=== PATIENT | female | born 2000 | race Caucasian/White ===

== ENCOUNTER 2019-02-18 08:50 | Outpatient (CLI) | payer MEDICAID ==
[~2019-02-18] VITALS: Ht 149.9 cm; Wt 77.8 kg
[~2019-02-18 08:50] MED LIST: PREN-99 PO
[2019-02-18 09:04] VITALS: Ht 149.9 cm; Wt 77.8 kg
[2019-02-18 09:05] VITALS: BP 108/62
[2019-02-18] MEDS ORDERED: LACTATED RINGER'S 1,000 ML IV ONE (09:30)
[2019-02-18] MEDS ORDERED: SOD CHLORIDE 0.9% 1,000 ML IV SCH (12:30)
[2019-02-18] MEDS ORDERED: CEFTRIAXONE 1 GM/50 ML (PMX) 50 ML IVPB ONE (13:30)
--- NOTE | 2019-02-18 14:48 | TRIAGE ---
OB Triage Datetime Report Generated by CPN: 02/18/2019 14:48 Datetime: 02/18/2019 13:55 Stage of : OB Triage Labor Evaluation Frequency: 0 Monitor Mode: External Pattern: Normal: <= 5 Contractions in 10 Minutes Resting Tone [place]: Relaxed Heart Rate FHR Baseline Rate: 135 Monitor Mode: External US Variability: Moderate 6-25 bpm Accelerations: 15X15 Decelerations: None Category: Category I Datetime: 02/18/2019 12:50 Stage of : OB Triage Labor Evaluation Frequency: 0 Monitor Mode: External Pattern: Normal: <= 5 Contractions in 10 Minutes Resting Tone [place]: Relaxed Heart Rate FHR Baseline Rate: 135 Monitor Mode: External US Accelerations: 15X15 Decelerations: None Category: Category I Pain Assessment Pain Scale: 5 Pain Presence: Intermittent Pain Type: Ache Pain Location: Back Pain Goal: 0 Pain Relief Measures: Comfort Measures Datetime: 02/18/2019 11:34 Stage of : OB Triage Datetime: 02/18/2019 10:47 Stage of : OB Triage Labor Evaluation Frequency: 0 Monitor Mode: External Pattern: Normal: <= 5 Contractions in 10 Minutes Resting Tone [place]: Relaxed Heart Rate FHR Baseline Rate: 135 Monitor Mode: External US Variability: Moderate 6-25 bpm Accelerations: 15X15 Decelerations: None Category: Category I Pain Assessment Pain Scale: 7 Pain Presence: Intermittent Pain Type: Ache Pain Location: Back Pain Goal: 0 Pain Relief Measures: Comfort Measures Datetime: 02/18/2019 09:45 Comments: us at bedside Datetime: 02/18/2019 09:20 Labor Evaluation Frequency: 0 Monitor Mode: External Pattern: Normal: <= 5 Contractions in 10 Minutes Resting Tone [place]: Relaxed Heart Rate FHR Baseline Rate: 145 Monitor Mode: External US Variability: Moderate 6-25 bpm Accelerations: 15X15 Decelerations: None Category: Category I Datetime: 02/18/2019 09:01 Time of Arrival: 02/18/2019 08:43 EGA: 27.1 Arrived By: Ambulatory Arrived From: Home Chief Complaint: UC'S Movement: Present Contractions: Irregular Rupture of Membranes: Denies Vaginal Bleeding: None Vaginal Discharge: Denies Recent Sexual Intercouse: Denies Abdominal Trauma: Not Applicable Patient Complaints: Contractions Additional Patient Complaints: PATIENT STATES UC'S PAST THREE DAYS Time Provider Notified: 02/18/2019 09:20 Provider Notified: dr. roy Initial Plan: [id number], CALL MD Datetime: 02/18/2019 08:52 Stage of : OB Triage Assessment Type: Triage Maternal Assessment Level of Consciousness: Fully Conscious DTR's/Clonus: DTRs 2+; No Clonus Headache: Denies Blurred Vision: No Respiratory Effort: Unlabored; Regular Rhythm; Equal Expansion Breath Sounds, Left: Clear and Equal Breath Sounds, Right: Clear and Equal Nausea/Vomiting: Denies RUQ Epigastric Pain: Denies Lower Extremities Edema: None Degree: None Upper Extremities Edema: None Degree: None Facial Edema: None Temperature Route: Oral Fall Risk Assessment History of Falling: (0) No Secondary Diagnosis: (0) No Ambulatory Aid: (0) Bedrest/Nurse Assist IV Therapy: (0) No Gait: (0) Normal/Bedrest/Immobile Mental Status: (0) Oriented to Own Ability Fall Score: 0 Fall Risk Score Definition: No Risk: No action required Monitor Mode: External (Annotations: INITIAL PLACEMENT ) Monitor Mode: External US (Annotations: INIITIAL PLACEMENT ) Pain Assessment Pain Scale: 0 Pain Presence: None/Denies Pain Type: N/A Datetime: 12/29/2018 23:24 Stage of : OB Triage Datetime: 12/29/2018 23:00 Labor Evaluation Frequency: X2 Monitor Mode: External Duration (sec)2399: 40-50 Quality: Mild Pattern: Normal: <= 5 Contractions in 10 Minutes Resting Tone [place]: Relaxed Datetime: 12/29/2018 22:00 Labor Evaluation Frequency: X1 Monitor Mode: External Duration (sec)2399: 40 Quality: Mild Pattern: Normal: <= 5 Contractions in 10 Minutes Resting Tone [place]: Relaxed Datetime: 12/29/2018 21:00 Labor Evaluation Frequency: X1 Monitor Mode: External Duration (sec)2399: 40 Quality: Mild Pattern: Normal: <= 5 Contractions in 10 Minutes Resting Tone [place]: Relaxed Datetime: 12/29/2018 20:53 EGA: 19.6 Datetime: 12/29/2018 20:30 Labor Evaluation Frequency: IRREGULAR Monitor Mode: External Duration (sec)2399: 40-70 Quality: Mild Pattern: Normal: <= 5 Contractions in 10 Minutes Resting Tone [place]: Relaxed Datetime: 12/29/2018 19:56 Stage of : OB Triage Assessment Type: Triage Maternal Assessment Level of Consciousness: Fully Conscious DTR's/Clonus: DTRs 2+; No Clonus Headache: Denies Blurred Vision: No Respiratory Effort: Unlabored; Regular Rhythm; Equal Expansion Breath Sounds, Left: Clear and Equal Breath Sounds, Right: Clear and Equal Nausea/Vomiting: Denies RUQ Epigastric Pain: Denies Facial Edema: None Temperature Route: Oral Fall Risk Assessment History of Falling: (0) No Secondary Diagnosis: (0) No Ambulatory Aid: (0) Bedrest/Nurse Assist IV Therapy: (0) No Gait: (0) Normal/Bedrest/Immobile Mental Status: (0) Oriented to Own Ability Fall Score: 0 Fall Risk Score Definition: No Risk: No action required Pain Assessment Pain Scale: 7 Pain Presence: Constant Pain Type: Ache Pain Location: LEFT SIDE Pain Goal: 2 Pain Relief Measures: Comfort Measures Datetime: 12/29/2018 19:40 Stage of : OB Triage
--- NOTE | 2019-02-18 18:16 | PN ---
Triage Information Date/Time 02/18/19 Reason for visit: Uterine contractions Weeks of Gestation 27w1d /Para Diabetes: none Hypertention: none Objective Vital Signs Date Temp Pulse Resp B/P (MAP) Pulse Ox O2 O2 Flow FiO2 Time Delivery Rate 02/18/19 98.2 108/62 09:05 (77) Heart Rate: 140's Contractions: None Exam CVA sharonda tenderness ? urine ++ leukocytes but WBC or RBC not significant Results/Medications Results 24 hrs Laboratory Tests Test 02/18/19 09:30 Urine Color YELLOW Urine Clarity SLIGHTLY CLOUDY A Urine pH 7.0 Urine Specific [place] 1.010 Urine Ketones NEGATIVE Urine Nitrite NEGATIVE Urine Bilirubin NEGATIVE Urine Urobilinogen NEGATIVE Urine Leukocyte Esterase 2+ H Urine Microscopic RBC 2 Urine Microscopic WBC 4 Urine Squamous Epithelial Cells MODERATE Urine Bacteria FEW A Urine Hemoglobin NEGATIVE Urine Glucose NEGATIVE Urine Total Protein NEGATIVE Medications rocephin 1gm IV given IV hydration Imaging Results CVL 4.7cm Disposition: Discharge Assessment/Plan IUP 27w1d R/O PTL pain resolved R/O UTI Plan discharge home with insrtuction to drink more water Rx cephalexin 500mg q6hr #28 DEVEN ALLEN MD Feb 18, 2019 18:16
== END 2019-02-18 14:47 | disposition home or self-care (01) ==
LOC: OBT 08:50 → L-D 08:50 → OBT 14:47
PROVIDERS: ATTEND Obstetrics & Gynecology
DX: O62.9 Abnormality of forces of labor, unspecified (principal); Z3A.27 27 weeks gestation of pregnancy
CPT/HCPCS: 76817; 81001; 87086; J0696; J7030; J7120; 96360; 96361; G0463

== ENCOUNTER 2019-05-05 17:00 | Outpatient (CLI) | payer MEDICAID ==
[~2019-05-05] VITALS: Ht 149.9 cm; Wt 81.9 kg
[2019-05-05 17:38] VITALS: BP 109/63; PULSE 75; RESP 19; Ht 149.9 cm; Wt 81.9 kg
--- NOTE | 2019-05-05 18:49 | PREOPHP ---
DATE OF ADMISSION: 05/05/2019 HISTORY OF PRESENT ILLNESS: Ms. Dejah Thompson is a 19-year-old 1 para 0, EDC 05/18/2019 , intrauterine at 38 weeks gestational age who presented to triage complaining of lower rema k pain with dysuria. She denies any headache, nausea, vomiting, shortness of breath or visual change s. Her care took place at [facility]. PAST MEDICAL HISTORY: Anemia. MEDICATIONS: 1. vitamins. 2. Iron. PAST SURGICAL HISTORY: None. OBSTETRIC HISTORY: Primigravida. GYNECOLOGIC HISTORY: 11, regular 3 to 4 days. Denies any sexually transmitted infections. Sexually active with one partner. SOCIAL HISTORY: Denies any smoking, drugs or alcohol. FAMILY HISTORY: None. REVIEW OF SYSTEMS: All within normal except history of present illness. PHYSICAL EXAMINATION: HEENT: Within normal. LUNGS: CTA bilateral. CARDIOVASCULAR: S1, S2, regular rhythm. ABDOMEN: Gravid, nontender. Negative CVA bilateral. EXTREMITIES: Negative calf tenderness. VAGINAL EXAM: 150 -3 posterior. H and H is 9.5/29.9, white blood cell 7. Urinalysis negative. Fet al heart tracing category 1. TOCO: Occasional contractions. ASSESSMENT: Intrauterine at 38 weeks gestational age with symptomatic urinary tract infect ion. PLAN: Discharged to home with Keflex 500 mg p.o. t.i.d. #21. Followup biophysical profile before di marcela. Dictated By: KARMA JAIMES/MAYO Conf#: [id number] DID#: [id number]
--- NOTE | 2019-05-05 18:56 | TRIAGE ---
OB Triage Datetime Report Generated by CPN: 05/05/2019 18:56 Datetime: 05/05/2019 17:43 Assessment Type: Triage Maternal Assessment Level of Consciousness: Keenly Alert, Responsive DTR's/Clonus: DTRs 2+; No Clonus Headache: Denies Blurred Vision: No Respiratory Effort: Unlabored; Regular Rhythm; Equal Expansion Breath Sounds, Left: Clear and Equal Breath Sounds, Right: Clear and Equal Nausea/Vomiting: Denies RUQ Epigastric Pain: Denies Lower Extremities Edema: None Degree: None Upper Extremities Edema: None Degree: None Facial Edema: None Fall Risk Assessment History of Falling: (0) No Secondary Diagnosis: (0) No Ambulatory Aid: (0) Bedrest/Nurse Assist IV Therapy: (0) No Gait: (0) Normal/Bedrest/Immobile Mental Status: (0) Oriented to Own Ability Fall Score: 0 Fall Risk Score Definition: No Risk: No action required Labor Evaluation Frequency: OCCAS Monitor Mode: External Duration (sec)2399: 50-70 Quality: Mild Pattern: Normal: <= 5 Contractions in 10 Minutes Resting Tone [place]: Relaxed Heart Rate FHR Baseline Rate: 125 Monitor Mode: External US Variability: Moderate 6-25 bpm Accelerations: 15X15 Decelerations: None Category: Category I Datetime: 05/05/2019 17:42 Time of Arrival: 05/05/2019 16:50 EGA: 38.0 Arrived By: Ambulatory Arrived From: Home Chief Complaint: BACK PAIN AND BURNING WHILE URINATING Movement: Present Contractions: Denies/Absent Rupture of Membranes: Denies Vaginal Bleeding: None Vaginal Discharge: Denies Recent Sexual Intercouse: Denies Abdominal Trauma: Not Applicable Patient Complaints: Other Time Provider Notified: 05/05/2019 17:45 Provider Notified: DR HOLLAND Initial Plan: NST UA BPP Datetime: 02/18/2019 09:01 EGA: 27.1 Datetime: 02/18/2019 08:52 Fall Score: 0 Fall Risk Score Definition: No Risk: No action required Datetime: 12/29/2018 20:53 EGA: 19.6 Datetime: 12/29/2018 19:56 Fall Score: 0 Fall Risk Score Definition: No Risk: No action required
== END 2019-05-05 18:58 | disposition home or self-care (01) ==
LOC: L-D 17:00 → OBT 17:00
PROVIDERS: ATTEND Obstetrics & Gynecology
DX: O23.43 Unspecified infection of urinary tract in pregnancy, third trimester (principal); Z3A.38 38 weeks gestation of pregnancy
CPT/HCPCS: 76818; 81001; 85025; Z7500; G0463

== ENCOUNTER 2019-05-06 18:16 | Outpatient (CLI) | payer MEDICAID ==
[~2019-05-06] VITALS: Ht 149.9 cm; Wt 82.1 kg
[2019-05-06 18:49] VITALS: BP 106/61; PULSE 86; RESP 18; Ht 149.9 cm; Wt 82.1 kg
--- NOTE | 2019-05-06 21:50 | PN ---
Triage Information Date/Time Reason for visit: Abd/pelvic pain Weeks of Gestation Patient is a 19-year-old 1 para 0 at 38 weeks and 2 days of gestation with estimated date of delivery May 18, 2019 She presents with chief complaint of abdominal pain and pressure Patient denies vaginal bleeding or leaking fluid, she reports positive movement /Para 1 para 0 Diabetes: none Hypertention: none Objective Vital Signs Date Temp Pulse Resp B/P (MAP) Pulse Ox O2 O2 Flow FiO2 Time Delivery Rate 05/06/19 98.8 86 18 106/61 18:49 (76) Heart Rate: 140's Heart Rate Comments tracing category 1 Contractions: None Exam Cervix closed per nurse Results/Medications Results 24 hrs Laboratory Tests Test 05/06/19 18:45 Urine Color YELLOW Urine Clarity CLEAR Urine pH 7.0 Urine Specific [place] 1.008 Urine Ketones TRACE A Urine Nitrite NEGATIVE Urine Bilirubin NEGATIVE Urine Urobilinogen NEGATIVE Urine Leukocyte Esterase NEGATIVE Urine Hemoglobin NEGATIVE Urine Glucose NEGATIVE Urine Total Protein NEGATIVE Imaging Results PROCEDURE: US OB. CLINICAL INDICATION: Decreased movement TECHNIQUE: Multiple sonographic images of the pelvis were obtained. The images were reviewed on a PACS workstation. COMPARISON: No prior studies are available for comparison. FINDINGS: There is a single live intrauterine . cardiac activity is identified at a rate of 146 beats per minute. presentation is cephalic. Placenta is left lateral grade 2. Biophysical profile score is as follows: Breathing 2 Movements 2 Tone 2 Fluid volume 2 Amniotic fluid index = 9.7 cm Total biophysical profile score = 8/8 IMPRESSION: Biophysical profile score = 8/8 RPTAT: HH .Ameya Horne MD, Date Time Electronically viewed and signed by .Ameya Horne MD, on 05/05/2019 18:17 .W/ CC: KARMA HOLLAND MD [phone] PROCEDURE: US Obstetrical, limited CLINICAL INDICATION: Uterine contractions, cervical length TECHNIQUE: Multiple real-time images were acquired of the patient's maternal abdomen utilizing a curved array transducer. COMPARISON: 12/29/2018 FINDINGS: There is a single live intrauterine fetus positioned cephalic. The placenta is implanted posteriorly and is grade 1. There is no placenta previa or abruptio evident. The cervix is closed and measures 4.7 cm in length. The heart rate is 146 beats per minute. IMPRESSION: 1. Single live intrauterine fetus, now cephalic in presentation. The heart rate is 146 bpm. 2. The cervix is closed and a trace of the cervix measures 4.7 cm in length. 3. Posterior placenta, grade 1. No previa or abruptio is evident. Physician Shanon Date Time Electronically viewed and signed by Physician Shanon on 02/18/2019 09:59 RH/ CC: DEVEN ALLEN MD [phone] Disposition: Discharge Assessment/Plan Labor precautions were given kick count instructions were given Patient instructed to follow-up with [facility] in 1 to 2 days DAYA DONNELLY MD May 06, 2019 21:49
--- NOTE | 2019-05-07 05:17 | TRIAGE ---
OB Triage Datetime Report Generated by CPN: 05/07/2019 05:17 Datetime: 05/06/2019 21:08 Stage of : OB Triage Labor Evaluation Frequency: Irregular Monitor Mode: External Duration (sec)2399: 40-80 Quality: Mild Pattern: Normal: <= 5 Contractions in 10 Minutes Resting Tone [place]: Relaxed Heart Rate FHR Baseline Rate: 125 Monitor Mode: External US FHR Baseline Changes: No Baseline Change Variability: Moderate 6-25 bpm Accelerations: 15X15 Decelerations: None Datetime: 05/06/2019 21:00 Stage of : OB Triage Datetime: 05/06/2019 20:06 Stage of : OB Triage Vaginal Exam Dilatation (cms): 0.0 Effacement (%): 50 Station: -3 Exam By: SYL Alex Membrane Status: Intact Vaginal Bleeding: None Cervix, Consistency: Soft Cervix, Position: Posterior Datetime: 05/06/2019 20:00 Stage of : OB Triage Assessment Type: Triage Maternal Assessment Level of Consciousness: Keenly Alert, Responsive DTR's/Clonus: DTRs 2+; No Clonus Headache: Denies Blurred Vision: No Respiratory Effort: Unlabored; Regular Rhythm; Equal Expansion Breath Sounds, Left: Clear and Equal Breath Sounds, Right: Clear and Equal Nausea/Vomiting: Denies RUQ Epigastric Pain: Denies Lower Extremities Edema: None Degree: None Upper Extremities Edema: None Degree: None Facial Edema: None Temperature Route: Oral Fall Risk Assessment History of Falling: (0) No Secondary Diagnosis: (0) No Ambulatory Aid: (0) Bedrest/Nurse Assist IV Therapy: (0) No Gait: (0) Normal/Bedrest/Immobile Mental Status: (0) Oriented to Own Ability Fall Score: 0 Fall Risk Score Definition: No Risk: No action required Labor Evaluation Frequency: Irregular Monitor Mode: External Duration (sec)2399: 40-80 Quality: Mild Pattern: Normal: <= 5 Contractions in 10 Minutes Resting Tone [place]: Relaxed Heart Rate FHR Baseline Rate: 125 Monitor Mode: External US Variability: Moderate 6-25 bpm Accelerations: 15X15 Decelerations: None Datetime: 05/06/2019 19:28 Stage of : OB Triage Datetime: 05/06/2019 18:39 Stage of : OB Triage Assessment Type: Triage Maternal Assessment Level of Consciousness: Keenly Alert, Responsive DTR's/Clonus: DTRs 2+; No Clonus Headache: Denies Blurred Vision: No Respiratory Effort: Unlabored; Regular Rhythm; Equal Expansion Breath Sounds, Left: Clear and Equal Breath Sounds, Right: Clear and Equal Nausea/Vomiting: Denies RUQ Epigastric Pain: Denies Facial Edema: None Temperature Route: Axillary Fall Risk Assessment History of Falling: (0) No Secondary Diagnosis: (0) No Ambulatory Aid: (0) Bedrest/Nurse Assist IV Therapy: (0) No Gait: (0) Normal/Bedrest/Immobile Mental Status: (0) Oriented to Own Ability Fall Score: 0 Fall Risk Score Definition: No Risk: No action required Labor Evaluation Frequency: X1 Monitor Mode: External Duration (sec)2399: 50 Quality: Mild Pattern: Normal: <= 5 Contractions in 10 Minutes Resting Tone [place]: Relaxed Heart Rate FHR Baseline Rate: APPLIED Monitor Mode: External US Pain Assessment Pain Scale: 7 Pain Presence: Intermittent (Annotations: UPON URINATION) Pain Type: Burning Pain Location: Perineum Pain Goal: 3 Pain Relief Measures: Comfort Measures Datetime: 05/06/2019 18:38 Time of Arrival: 05/06/2019 18:09 EGA: 38.2 Arrived By: Ambulatory Arrived From: Home Chief Complaint: C/O MUCUS DISCHARGE AND PAIN UPON URINATION, DENIES LEAKING, SCANT BLEEDING Movement: Present Contractions: Denies/Absent Rupture of Membranes: Denies Vaginal Bleeding: Scant Vaginal Discharge: Present Recent Sexual Intercouse: Denies Abdominal Trauma: Not Applicable Patient Complaints: None Time Provider Notified: 05/06/2019 19:28 Provider Notified: Initial Plan: MONITOR, UA, VE, BPP Datetime: 05/05/2019 17:43 Fall Score: 0 Fall Risk Score Definition: No Risk: No action required Datetime: 05/05/2019 17:42 EGA: 38.1 Datetime: 02/18/2019 09:01 EGA: 27.2 Datetime: 02/18/2019 08:52 Fall Score: 0 Fall Risk Score Definition: No Risk: No action required Datetime: 12/29/2018 20:53 EGA: 20.0 Datetime: 12/29/2018 19:56 Fall Score: 0 Fall Risk Score Definition: No Risk: No action required
== END 2019-05-06 21:15 | disposition home or self-care (01) ==
LOC: OBT 18:16 → L-D 18:16 → OBT 21:15
PROVIDERS: ATTEND Obstetrics & Gynecology
DX: O26.893 Other specified pregnancy related conditions, third trimester (principal); R10.2 Pelvic and perineal pain; Z3A.38 38 weeks gestation of pregnancy
CPT/HCPCS: 76818; 81003; 87086; Z7500; G0463

== ENCOUNTER 2019-05-12 | Inpatient (IN) | payer MEDICAID ==
[~2019-05-12] VITALS: Ht 149.9 cm; Wt 82.5 kg
[2019-05-12 01:27] VITALS: BP 116/71; PULSE 71; RESP 18; Ht 149.9 cm; Wt 82.5 kg
[2019-05-12] MEDS ORDERED: ACETAMINOPHEN 500 MG TAB PO ONE (01:34)
[2019-05-12] MEDS ORDERED: LACTATED RINGER'S 1,000 ML IV PRN (04:16)
[2019-05-12] MEDS ORDERED: MISOPROSTOL 200 MCG TAB PR PRN (04:30)
[2019-05-12] MEDS ORDERED: OXYTOCIN 30 UNITS/LR 500 ML IV PRN (04:30)
[2019-05-12] MEDS ORDERED: LIDOCAINE 1% (MPF) 30 ML INJ INJ PRN (04:30)
[2019-05-12] MEDS ORDERED: BUTORPHANOL 2 MG INJ IV PRN (04:30)
[2019-05-12] MEDS ORDERED: IBUPROFEN 600 MG TAB PO PRN (04:30)
[2019-05-12] MEDS ORDERED: OXYTOCIN 30 UNITS/LR 500 ML IV SCH ×2 (04:30)
[2019-05-12] MEDS ORDERED: CARBOPROST 250 MCG INJ IM PRN (04:30)
[2019-05-12] MEDS ORDERED: METHYLERGONOVINE 0.2 MG INJ IM PRN (04:30)
--- NOTE | 2019-05-12 05:17 | HP ---
Date/Time of Note Date/Time of Note DATE: 05/12/19 TIME: 05:14 OB - History Hx of Present Free Text/Dictation May 12, 2019 : 1 Para: 0 Other Concerns: 19-year-old G1, P0 with IUP at 39 weeks and 1 day presented after she fell today on her tailbone for evaluation. She denies any leaking of fluid, vaginal bleeding decreased movement or contractions. Patient denies any direct trauma to her abdomen. Denies any complication during course. Past Family/Social History * Past Medical, Surgical, Family and Obstetric Histories reviewed from chart. OB Admission Exam Vital Signs Vital Signs Vital Signs Date Temp Pulse Resp B/P (MAP) Pulse Ox O2 O2 Flow FiO2 Time Delivery Rate 05/12/19 98.3 71 18 116/71 Room Air 01:27 (86) Physical Exam HEENT: WNL Lungs: Clear Abdomen: WNL Extremities: Normal Reflexes: Normal Cervical Dilatation: 2cm Effacement: 75% Station: -1 Membranes: Intact Heart Rate: 120's Accelerations: Accelerations Present Varibility: Moderate Contractions on Admission: < 5 Minutes Apart Intensity: Moderate OB Assessment/Plan Other Assessment: IUP at 39 weeks and 1 day Status post fall Contractions, early labor Patient will be admitted for labor management possible augmentation Obtain records Anticipate VY DRISCOLL MD May 12, 2019 05:17
[2019-05-12] MEDS: LACTATED RINGER'S 1,000 ML IV SCH ×4 (05:23→23:49)
[2019-05-12] MEDS ORDERED: MINERAL OIL LIGHT 10 ML VIAL TOP ONE (08:00)
[2019-05-12] MEDS: AMPICILLIN 2 GM/NS (PMX) 100 ML IV PRN ×2 (12:23→13:40)
--- NOTE | 2019-05-12 18:32 | QN ---
Documentation Comment progress note patient seen and evaluated no complaints vs stable afebrile ab gravid nt extremity no edema no calf tenderness ve 4/90/-2 intact fhr cat 1 toco regular a/ iup at term in labor admitted for labor augmentation p/ anticipate vaginal delivery KARMA HOLLAND MD May 12, 2019 18:32
--- NOTE | 2019-05-12 19:44 | PREAC ---
Date/Time of Note Date/Time of Note DATE: 05/12/19 TIME: 19:43 Anesthesia Eval and Record Evaluation Time Pre-Procedure Interview DATE: 05/12/19 TIME: 19:43 Age 19 Sex female NPO: 8 hrs Preoperative diagnosis Planned procedure labor epidural Past Medical History Past Medical History: Includes GI: Obesity Surgery & Anesthesia Issues No known issue Meds Anticoagulation: No Beta Erum within 24 hr: No Reason Beta Erum not given: Pt. not on B-Erum Reported Medications Vit #76/Iron,Carb/FA (Pnv 29-1 Tablet) 1 Each Tablet, 1 EACH PO, TAB 12/29/18 Current Medications Lactated Ringer's 1,000 ml @ 125 mls/hr Q8H IV Last administered on 05/12/19at 17:28; Admin Dose 125 MLS/HR; Start 05/12/19 at 04:16 Butorphanol Tartrate (Stadol) 2 mg Q2H PRN IV .PAIN SCALE 6-10 Last administered on 05/12/19at 17:53; Admin Dose 2 MG; Start 05/12/19 at 04:30 Lidocaine (Xylocaine 1% (Mpf)) 30 ml ONCE PRN INJ .EPISIOTOMY; Start 05/12/19 at 04:30 Oxytocin/Lactated Ringer's 500 ml @ 500 mls/hr ONCE POST IV ; Start 05/12/19 at 04:30 Oxytocin/Lactated Ringer's 500 ml @ 125 mls/hr POST IV ; Start 05/12/19 at 04:30 Ibuprofen (Motrin) 600 mg ONCE PRN PO .PAIN 1-5; Start 05/12/19 at 04:30 Lactated Ringer's 1,000 ml @ 2,000 mls/hr Q30M PRN IV .ANESTHESIA; Start 05/12/19 at 04:16 Oxytocin/Lactated Ringer's 500 ml @ 0 mls/hr ONCE PRN IV .VAGINAL BLEEDING; Start 05/12/19 at 04:30 Methylergonovine Maleate (Methergine) 0.2 mg ONCE PRN IM .VAGINAL BLEEDING; Start 05/12/19 at 04:30 Carboprost Tromethamine (Hemabate) 250 mcg ONCE PRN IM .VAGINAL BLEEDING; Start 05/12/19 at 04:30 Misoprostol (Cytotec) 1,000 mcg ONCE PRN OK .VAGINAL BLEEDING; Start 05/12/19 at 04:30 Oxytocin/Lactated Ringer's 500 ml @ 0 mls/hr FOR AUGMENTATION IV Last administered on 05/12/19at 05:29; Admin Dose 1 MLS/HR; Start 05/12/19 at 04:30 Meds reviewed: Yes Allergies Coded Allergies: Sulfa (Sulfonamide Antibiotics) (Verified Allergy, Intermediate, 05/12/19) Allergies Reviewed: Yes Labs/Studies Labs Reviewed: Reviewed by anesthesiologist Result Diagram: 05/12/1920 Laboratory Tests 05/12/19 05:20 Blood Bank Test 05/12/19 05:20 Antibody Screen NEGATIVE Blood Type A POSITIVE Rh Immune Globulin Candidate NO test: Positive Pre-procedure Exam Last vitals Vital Signs Date Temp Pulse Resp B/P (MAP) Pulse Ox O2 O2 Flow FiO2 Time Delivery Rate 05/12/19 98.3 71 18 116/71 Room Air 01:27 (86) Airway: Adequate mouth opening, Adequate thyromental dist Mallampati: Mallampati II Teeth: Normal Lung: Normal Heart: Normal ASA Physical Status ASA physical status: 2 Emergency: None Planned Anesthetic Neuraxial: Epidural Pre-operative Attestations Prior to commencing anesthesia and surgery, the patient was re-evaluated, there was verification of: *The patient's identity *The results of appropriate recent lab work and preoperative vital signs *The above evaluation not changing prior to induction *Anesthetic plan, risk benefits, alternative and complications discussed with patient/family; questions answered; patient/family understands, accepts and wishes to proceed. BARAK HAMMER May 12, 2019 19:44
[2019-05-12] MEDS ORDERED: HYDROmorphONE 0.5 MG/0.5 ML SYG IV PRN ×2 (20:00)
[2019-05-12] MEDS ORDERED: KETOROLAC 30 MG INJ IV PRN (20:00)
[2019-05-12] MEDS ORDERED: NALOXONE (0.4 MG/ML) INJ IV PRN (20:00)
[2019-05-12] MEDS ORDERED: ONDANSETRON 4 MG INJ IV PRN (20:00)
[2019-05-12] MEDS ORDERED: DIPHENHYDRAMINE 50 MG INJ IV PRN (20:00)
[2019-05-12] MEDS: FENTAnyl 2MCG/ML-ROPIV 0.2% 100 ML BAG EPI SCH (20:49)
--- NOTE | 2019-05-12 22:23 | PAC ---
Date/Time of Note Date/Time of Note DATE: 05/12/19 TIME: 22:22 Post-Anesthesia Notes Post-Anesthesia Note Last documented vital signs Vital Signs Date Temp Pulse Resp B/P (MAP) Pulse Ox O2 O2 Flow FiO2 Time Delivery Rate 05/12/19 98.3 71 18 116/71 Room Air 01:27 (86) Activity: WNL Respiratory function: WNL Cardiovascular function: WNL Mental status: Baseline Pain reasonably controlled: Yes Hydration appropriate: Yes Nausea/Vomiting absent: Yes BARAK HAMMER May 12, 2019 22:22
[2019-05-13] MEDS: FENTAnyl 2MCG/ML-ROPIV 0.2% 100 ML BAG EPI SCH ×3 (03:00→13:23)
[2019-05-13] MEDS: LACTATED RINGER'S 1,000 ML IV SCH (08:15)
[2019-05-13] MEDS: OXYTOCIN 30 UNITS/LR 500 ML IV SCH ×2 (15:36→17:09)
[2019-05-13] MEDS ORDERED: OXYTOCIN 30 UNITS/LR 500 ML IV SCH (15:46)
--- NOTE | 2019-05-13 15:46 | LDN ---
Date/Time of Note Date/Time of Note DATE: 05/13/19 TIME: 15:44 Delivery Summary Weeks of Gestation 39 Placenta Delivered: Spontaneously Meconium: none Episiotomy: Yes Laceration repair: rmle repair with 2-0 and 3-0 chromic Anesthesia type: Epidural Estimated blood loss: 700 ( hemorage) Sponge & Needle done & correct: Yes All needle counts correct: Yes Any foreign bodies felt in the: No Delivery Information Sex Sex: male Apgars 1 Minute: 8 5 Minute: 9 Suctioning Nose & mouth suctioned at luciano: No Delee suction performed: No Umbilical Cord Umbilical cord with: 3 Vessels Cord presentations: no nuchal cord Cord Blood was obtained: Yes KARMA HOLLAND MD May 13, 2019 15:46
[2019-05-13] MEDS ORDERED: OXYCODONE/ASPIRIN (4.88/325) TAB PO PRN ×2 (16:00)
[2019-05-13] MEDS ORDERED: CARBOPROST 250 MCG INJ IM PRN (16:00)
[2019-05-13] MEDS ORDERED: NACL 0.9% 3 ML SYG IV SCH (16:00)
[2019-05-13] MEDS ORDERED: CEFAZOLIN 2 GM/50 ML (PMX) 50 ML IVPB ONE (16:00)
[2019-05-13] MEDS ORDERED: ACETAMINOPHEN 325 MG TAB PO PRN (16:00)
[2019-05-13] MEDS ORDERED: BENZOCAINE 20% 56 ML SPRAY TOP PRN (16:00)
[2019-05-13] MEDS ORDERED: SENNA/DOCUSATE NA (8.6MG/50MG) TAB PO PRN (16:00)
[2019-05-13] MEDS ORDERED: MISOPROSTOL 200 MCG TAB PR PRN (16:00)
[2019-05-13] MEDS ORDERED: DIPHENHYDRAMINE 25 MG CAP PO PRN (16:00)
[2019-05-13] MEDS ORDERED: OXYTOCIN 30 UNITS/LR 500 ML IV PRN (16:00)
[2019-05-13] MEDS ORDERED: WITCH HAZEL/GLYCERIN PAD PR PRN (16:00)
[2019-05-13] MEDS ORDERED: LANOLIN HPA 1 PKT TOP PRN (16:00)
[2019-05-13] MEDS ORDERED: ONDANSETRON 4 MG INJ IV PRN (16:00)
[2019-05-13] MEDS ORDERED: METHYLERGONOVINE 0.2 MG INJ IM PRN (16:00)
[2019-05-13 20:00] VITALS: BP 104/58; PULSE 84; RESP 2
[2019-05-13] MEDS: SENNA/DOCUSATE NA (8.6MG/50MG) TAB PO SCH (21:25)
[2019-05-13] MEDS: POLYSACCHARIDE IRON COMPLEX CAP PO SCH (21:25)
[2019-05-13] MEDS: CEFAZOLIN 2 GM/50 ML (PMX) 50 ML IVPB SCH (22:15)
[2019-05-13] MEDS: IBUPROFEN 600 MG TAB PO SCH (23:52)
[2019-05-14] VITALS: BP 105/62; PULSE 78; RESP 20
[2019-05-14 04:11] VITALS: BP 104/52; PULSE 63; RESP 19
[2019-05-14] MEDS: CEFAZOLIN 2 GM/50 ML (PMX) 50 ML IVPB SCH ×3 (04:23→16:47)
[2019-05-14] MEDS: IBUPROFEN 600 MG TAB PO SCH ×4 (05:32→23:54)
[2019-05-14] MEDS ORDERED: LACTATED RINGER'S 1,000 ML IV PRN (06:00)
[2019-05-14] MEDS ORDERED: DIPHENHYDRAMINE 50 MG CAP PO ONE (07:00)
[2019-05-14] MEDS ORDERED: ACETAMINOPHEN 325 MG TAB PO ONE (07:00)
[2019-05-14 07:40] VITALS: BP 88/50; PULSE 89; RESP 18
--- NOTE | 2019-05-14 07:58 | QN ---
Documentation Comment progress note ppd 1 patient seen and evaluated aao X 3 no complaints no headache, n/v, sob, visual changes, epigastric pain, palpitation vs stable afebrile lungs cta b/l cvs positive s1s2 rrr ab soft nt uterine fundus firm at umbilicus no distention extremity no edema no calf tenderness a/ sp vaginal delivery, pp hemorrhage improved with uterotonics currently severe anemia p/ transfuse 2 units prbc r/b/a explained KARMA HOLLAND MD May 14, 2019 07:58
[2019-05-14] MEDS ORDERED: SOD CHLORIDE 0.9% 1,000 ML IV SCH (09:00)
[2019-05-14] MEDS: POLYSACCHARIDE IRON COMPLEX CAP PO SCH ×2 (09:10→21:48)
[2019-05-14] MEDS: SENNA/DOCUSATE NA (8.6MG/50MG) TAB PO SCH ×2 (09:10→21:48)
[2019-05-14 16:00] VITALS: BP 79/51; PULSE 86; RESP 16
[2019-05-14 19:45] VITALS: BP 93/54; PULSE 76; RESP 18
[2019-05-15 04:09] VITALS: BP 97/59; PULSE 73; RESP 18
[2019-05-15] MEDS: IBUPROFEN 600 MG TAB PO SCH ×2 (07:14→11:39)
[2019-05-15 07:40] VITALS: BP 98/56; PULSE 72; RESP 17
[2019-05-15] MEDS: POLYSACCHARIDE IRON COMPLEX CAP PO SCH (09:16)
[2019-05-15] MEDS: SENNA/DOCUSATE NA (8.6MG/50MG) TAB PO SCH (09:16)
--- NOTE | 2019-05-15 14:38 | QN ---
Documentation Comment PPD#2 is table afebrile tolerates diet No Vb +BM +voids Vs stable Gen NAD Abd soft NT ND Genitalia No blood at perineum -->Discharge home -->Precautions discussed --->Follow up with her provider MARS EDUARDO M.D. May 15, 2019 14:38
--- NOTE | 2019-05-15 14:38 | DS ---
Date/Time of Note Date/Time of Note DATE: 05/15/19 TIME: 14:38 Discharge Summary Admission/Discharge Info Admit Date/Time May 12, 2019 at 04:10 Discharge Date/Time May 15, 2019 at 13:40 Discharge Diagnosis Patient Condition: Good Hospital Course uneventful Home Meds Reported Medications Vit #76/Iron,Carb/FA (Pnv 29-1 Tablet) 1 Each Tablet, 1 EACH PO, TAB 12/29/18 Primary Care Provider Care Physician No Primary Pending Labs Laboratory Tests Test 05/14/19 21:58 White Blood Count 14.9 10^3/ul (4.8-10.8) Red Blood Count 2.75 10^6/ul (4.20-5.40) Hemoglobin 7.8 g/dl (12.0-16.0) Hematocrit 23.1 % (37.0-47.0) Mean Corpuscular Volume 84.0 fl (72.0-104.0) Mean Corpuscular Hemoglobin 28.4 pg (29.0-33.0) Mean Corpuscular Hemoglobin Concent 33.8 g/dl (32.0-37.0) Red Cell Distribution Width 14.5 % (11.5-14.5) Platelet Count 173 10^3/UL (140-415) Mean Platelet Volume 11.3 fl (7.4-10.4) Immature Granulocytes % 0.500 % (0.001-0.429) Neutrophils % 70.6 % (30.0-74.0) Lymphocytes % 20.6 % (18.0-55.0) Monocytes % 7.4 % (0.0-13.0) Eosinophils % 0.7 % (0.0-7.0) Basophils % 0.2 % (0.0-2.0) Nucleated Red Blood Cells % 0.0 /100WBC (0.0-0.0) Immature Granulocytes # 0.080 10^3/ul (0.0-0.031) Neutrophils # 10.5 10^3/ul (1.6-7.5) Lymphocytes # 3.1 10^3/ul (0.8-2.9) Monocytes # 1.1 10^3/ul (0.3-0.9) Eosinophils # 0.1 10^3/ul (0.0-0.5) Basophils # 0.0 10^3/ul (0.0-0.1) Nucleated Red Blood Cells # 0.0 10^3/ul (0.0-0.0) MARS EDUARDO M.D. May 15, 2019 14:38
--- NOTE | 2019-05-16 13:55 | DELSUM ---
Delivery Summary A-C Datetime Report Generated by CPN: 05/16/2019 13:55 DELIVERY PERSONNEL Trackless Trolley Driver: FARA LEOEL MATERNAL INFORMATION Delivery Anesthesia: Epidural Medications in Delivery: pitocin Delivery QBL (ml): 700 Placenta Cultured: No Maternal Complications: Other Other Maternal Complications: hx of hypothyroidism stopped meds in 2017 RN Comments: anemia, fell on tailbone 05/11/19, LABOR SUMMARY EDC: 05/18/2019 00:00 No. Babies in Womb: 1 Attempted: No Labor Anesthesia: Epidural LABOR INFORMATION Reason for Induction: Not Applicable Onset of Labor: 05/12/2019 02:00 Complete Dilatation: 05/13/2019 13:41 Oxytocin: Augmentation Group B Beta Strep: Negative Antibiotics # of Doses: 1 Antibiotics Time of Last Dose: 05/12/2019 12:23 Steroids Given: None Reason Steroids Not Administered: Not Applicable MEMBRANES Membranes Rupture Method: Artificial Rupture of Membranes: 05/13/2019 12:35 Length of Rupture (hr): 2.78 Amniotic Fluid Color: Clear Amniotic Fluid Amount: Large Amniotic Fluid Odor: None STAGES OF LABOR Stage 1 hr: 35 Stage 1 min: 41 Stage 2 hr: 1 Stage 2 min: 41 Stage 3 hr: 0 Stage 3 min: 3 Total Time in Labor hr: 37 Total Time in Labor min: 25 VAGINAL DELIVERY Episiotomy: Right Mediolateral Laceration Extension: N/A Laceration Type: None (Annotations: Data stored by N on behalf of user) Initial Vag Sponge Count: 10 Final Vag Sponge Count: 30 Initial Vag Sharps Count: 2 Final Vag Sharps Count: 4 Sponge Count Correct: Yes; Vaginal Sweep Performed Sharps Count Correct: Yes Count Comment: 20 LAPS AND 2 SHARPS ADDED BABY A INFORMATION Delivery Date/Time: 05/13/2019 15:22 Method of Delivery: Vaginal Born in Route : No : N/A Forceps: N/A Vacuum Extraction: N/A Shoulder Dystocia : N/A SHOULDER DYSTOCIA BABY A Infant Delivery Date/Time: 05/13/2019 15:22 PRESENTATION/POSITION BABY A Presentation: Cephalic Cephalic Presentation: Vertex Vertex Position: Left Occipital Anterior Breech Presentation: N/A PLACENTA INFORMATION BABY A Placenta Delivery Time : 05/13/2019 15:25 Placenta Method of Delivery: Spontaneous Placenta Status: Delivered SCORES BABY A Heart Rate 1 min: >100 bpm Resp Effort 1 min: Good Cry Reflex Irritability 1 min: Cough/Sneeze/Pulls Away Muscle Tone 1 min: Some Flexion of Extrem Color 1 min: Body [place], Extremit Blue Resuscitation Effort 1 min: Tactile Stimulation; Oxygen SCORE 1 MIN: 8 Heart Rate 5 min: >100 bpm Resp Effort 5 min: Good Cry Reflex Irritability 5 min: Cough/Sneeze/Pulls Away Muscle Tone 5 min: Active Motion Color 5 min: Body [place], Extremit Blue Resuscitation Effort 5 min: Tactile Stimulation SCORE 5 MIN: 9 INFANT INFORMATION BABY A Gestational Age at Delivery: 39.2 Gestational Status: Full Term- 39- 40.6 Weeks Outcome : Liveborn, with signs of life Infant Condition : Stable Sex: Male IDENTIFICATION/MEDS BABY A ID Band Number: [id number] ID Band Location: Right Leg; Left Arm Sensor Number: [id number] Sensor Location : Cord Clamp Vitamin K Given : Not Given Erythromycin Given: Not Given WEIGHT/LENGTH BABY A Birthweight (gm): 3680 Infant Weight (lb): 8 Infant Weight (oz): 2 Length (in): 19.50 Infant Length (cm): 49.53 CORD INFORMATION BABY A No. Cord Vessels: 3 Nuchal Cord : N/A Nuchal Cord- Other: 0 True Knot: 0 Cord Blood Taken: Yes Banking/Donate Info: NO Suction: Mouth; Nose ASSESSMENT BABY A Infant Complications: Multiple Variable Decels Complications- Other: anemia, low baseline, fell on tailbone Physical Findings at Delivery: Molding of the Head; Within Normal Limits Respirations: Appears Normal Evening Sitter/ALS Called : No Transferred To: Remains with Mother
== END 2019-05-15 13:40 | disposition home or self-care (01) | DRG 807 ==
LOC: OBT → L-D → OBT 04:10 → L-D 14:39 → PP1 05-13 19:58
PROVIDERS: ADMIT Obstetrics & Gynecology; ATTEND Obstetrics & Gynecology
PROC: 10E0XZZ Delivery of Products of Conception, External Approach (ICD-10-PCS; principal; 2019-05-13)
PROC: 0W8NXZZ Division of Female Perineum, External Approach (ICD-10-PCS; 2019-05-13)
PROC: 30233N1 Transfusion of Nonautologous Red Blood Cells into Peripheral Vein, Percutaneous Approach (ICD-10-PCS; 2019-05-14)
DX: O99.214 Obesity complicating childbirth (principal); Z37.0 Single live birth; E66.9 Obesity, unspecified; O72.1 Other immediate postpartum hemorrhage; O90.81 Anemia of the puerperium; D64.9 Anemia, unspecified; Z3A.39 39 weeks gestation of pregnancy; Z91.81 History of falling
CPT/HCPCS: 36430; 62322; 76815; 76818; 81001; 85025; 85610; 85730; 86592; 86850; 86900; 86901; 86920; 87086; 87340; A4310; G0463; J0290; J0595; J0690; J2210; J2405; J2590; J3010; J7120; P9016